=== PATIENT | male | born 1960 | race Caucasian/White ===

== ENCOUNTER → 2017-06-18 15:06 | Outpatient (CLI) | payer OTHER, SELFPAY ==
--- NOTE | 2017-06-18 15:13 | XR_ITS ---
XR chest 2V HISTORY: ITS.REASON: COUGH,SPUTUM,COREY RIB PAIN FROM MOWER INJURY ORDERING PHYSICIAN: Chidi Townsend PATIENT AGE: 57 years COMPARISON: 04/24/2016 FINDINGS: The cardiomediastinal silhouette and pulmonary vascularity are within normal limits. The lungs are clear without infiltrates, suspicious nodules, or pleural effusions. There are old left-sided rib fractures of the fifth, sixth, and seventh ribs. There is mild wedging involving appears to represent L1 chronic in nature No acute bony abnormalities. IMPRESSION: No change with no acute finding
== END ==
PROVIDERS: PCP Internal Medicine; Visit Provider Internal Medicine
DX: R05 Cough (principal); R07.81 Pleurodynia; R09.3 Abnormal sputum
CPT/HCPCS: 71046

== ENCOUNTER 2017-10-29 20:18 | Observation (INO) ==
[2017-10-29 20:35] LABS: Basophils # 0.1 K/mm3 (0-0.2); Eosinophils # 0.1 K/mm3 (0.0-0.4); Eosinophils % 2.2 % (0.1-12.0); Hemoglobin 14.1 g/dL (14.1-18.0); Lymphocytes # 2.6 K/mm3 (0.7-4.5); Lymphocytes % 50.7 K/mm3 (10-50); Mean Corpuscular Hemoglobin 31.3 pg (27.0-31.2); Mean Corpuscular Volume 97.9 fl (80-94); Mean Platelet Volume 6.8 fl (7.4-10.4); Monocytes # 0.4 K/mm3 (0.1-1.0); Monocytes % 8.5 % (1.7-9.3); Neutrophils # 1.8 K/mm3 (1.8-7.8); Neutrophils % 36.6 % (37.0-80.0); Platelet Count 414 K/mm3 (142-424); Red Cell Distribution Width 15.6 % (11.5-17.5)
--- NOTE | 2017-10-29 20:37 | Emergency Department Note ---
ED Disposition Clinical Impression: Tobacco use, Alcohol use Chest pain Qualifiers: Chest pain type: precordial pain Qualified Code(s): R07.2 - Precordial pain Ribs, multiple fractures Qualifiers: Encounter type: initial encounter Fracture type: closed Laterality: bilateral Qualified Code(s): S22.43XA - Multiple fractures of ribs, bilateral, initial encounter for closed fracture Disposition: Admitted as Observation Condition on Discharge: Good Referrals: Chidi Townsend [Primary Care Provider] - - Critical Care Critical Care Time: No Attestation: On , the high probability of a clinically significant, sudden or life threatening deterioration of the following system(s) required my full and direct attention, intervention and personal management. The time I documented below is in addition to time spent performing reported procedures but includes the following listed in this critical care notation. Medical Decision Making - Medical Records Medical records reviewed: Yes: I reviewed the patient's medical records. - Hernandez Inquiry Pt receiving controlled substance: No Vital Signs: 10/29/17 20:19 10/29/17 20:49 10/29/17 21:19 Temperature 98 F 98.6 F Temperature Source Oral Oral Pulse Rate [Right Radial] 90 92 H 69 Respiratory Rate 20 20 Blood Pressure [Right Arm] 147/89 135/82 123/67 Blood Pressure Mean [Right Arm] 108 99 85 Blood Pressure Source [Right Arm] Automatic Cuff Automatic Cuff Blood Pressure Position [Right Arm] Sitting Supine 02 Sat by Pulse Oximetry 97 96 95 Oxygen Delivery Method Room Air Room Air 10/29/17 21:42 10/29/17 22:30 Temperature 98.2 F Temperature Source Oral Pulse Rate [Right Radial] 72 71 Respiratory Rate 18 16 Blood Pressure [Right Arm] 126/76 124/84 Blood Pressure Mean [Right Arm] 92 97 Blood Pressure Source [Right Arm] Automatic Cuff Automatic Cuff Blood Pressure Position [Right Arm] Sitting Sitting 02 Sat by Pulse Oximetry 93 L 98 Oxygen Delivery Method Room Air Room Air - Lab Data Lab results reviewed: Yes: I reviewed the patient's lab results. Lab Results 10/29/17 20:25: WBC 5.0, RBC 4.50 L, Hgb 14.1, Hct 44.0, MCV 97.9 H, MCH 31.3 H, MCHC 32.0, RDW 15.6, Plt Count 414, MPV 6.8 L, Neut % (Auto) 36.6 L, Lymph % (Auto) 50.7 H, [place] % (Auto) 8.5, Eos % (Auto) 2.2, Baso % (Auto) 2.0, Neut # (Auto) 1.8, Lymph # (Auto) 2.6, [place] # (Auto) 0.4, Eos # (Auto) 0.1, Baso # (Auto) 0.1, Total Counted 100, Neutrophils % (Manual) 31 L, Lymphocytes % (Manual) 50, Monocytes % (Manual) 16 H, Eosinophils % (Manual) 3, Platelet Estimate Normal, Hypochromasia 1+ 10/29/17 20:25: Sodium 150 H, Potassium 3.9, Chloride 112 H, Carbon Dioxide 29, Anion Gap 12.9, BUN 5 L, Creatinine 0.79, Estimated Creat Clear 103, Estimated GFR 101, Est GFR ( Amer) 122, Glucose 83, Calcium 8.8, Troponin I < 0.02 10/29/17 20:25: Plasma/Serum Alcohol 215 H 10/29/17 22:18: Troponin I < 0.02 Result diagrams: 10/29/17 20:25 10/29/17 20:25 Orders (Tests/Meds): ED MEDICATIONS Discontinued Medications Generic Name Dose Route Start Last Admin Trade Name Sweta PRN Reason Stop Dose Admin Aspirin 324 mg 10/29/17 20:23 10/29/17 20:26 Aspirin 81mg Chewable Tablet PO 10/29/17 20:24 324 mg ONCE ONE Administration Iopamidol 75 ml 10/29/17 21:31 10/29/17 21:32 [id number]; 75ml Vial IV 10/29/17 21:32 75 ml ONCE ONE Administration Protocol Nitroglycerin 0.4 mg 10/29/17 20:25 10/29/17 20:26 Nitrostat 0.4mg Sl Tablet SL 10/29/17 20:26 0.4 mg ONCE ONE Administration Nitroglycerin 0.5 gm 10/29/17 20:40 10/29/17 20:43 Nitroglycerin 1 Inch Oint Udp TD 10/29/17 20:41 0.5 gm ONCE ONE Administration Sodium Chloride 50 ml 10/29/17 21:31 10/29/17 21:33 Rad-Ns 50ml Vial IV 10/29/17 21:32 50 ml ONCE ONE Administration - Radiology Data #1 Image(s): Chest Image Reviewed: Yes I reviewed the patient's radiology image Preliminary Findings: Abnormal (old rib fx ) - ECG Data Tracing #1 I reviewed this ECG and interpreted as documented below: Normal Sinus Rhythm: Yes Ischemic changes: non-specific ST-T wave changes - Physician Consults Physician Consulted: leann Reason -: Admission Chest Pain HPI - General Chief Complaint: Chest Pain Stated Complaint: Chest Pain Time Seen by Provider: 10/29/17 20:20 Mode of Arrival: Family Vehicle Source of Information: Patient, Spouse, Medical Record Limitations: No Limitations Description of Symptoms (Recalled from ER Triage Doc. by RN): pt states that approx 1 hour ago he had sudden onset of chest pain. pt describes the pain as being in his left chest/axilla area. pt also c/o nausea. - History of Present Illness HPI narrative: acute onset of lt chest pain which started tonight - new pain wi8th nausea complaint: chest pain indicative of cardiac Onset (ago): hour(s) Duration: now resolved Activity at onset: during rest Pain location: left chest Severity: moderate Quality: dull Pain radiation: none Associated symptoms: nausea Risk Factors for CAD: Family Hx of CAD, Smoking Treatments prior to or on arrival for Cardiac Chest Pain: none - JACOB Score Non-Stemi Age of patient: Less than 65 yrs Number of risk factors for CAD: Presence of 3 or more Prior coronary artery stenosis(seen in coronary angiography): Less than 50% ST-Segment deviation on ECG (more than 1 min): Absent Prior aspirin intake: No ASA in the last 7 days Severe anginal chest pain: Two or more episodes in last 24 hours Elevated cardiac markers(CK-MB or troponin): Absent Non-Stemi Risk Score: 2 - Related Data Home Medications Medication Instructions Recorded Confirmed No Known Home Medications 10/29/17 10/29/17 Allergies Allergy/AdvReac Type Severity Reaction Status Date / Time meperidine [From Demerol] Allergy Verified 10/29/17 20:22 [facility] History I have reviewed the patient's past medical history: Yes Medical History: Denies:: Cancer, Diabetes Mellitus Type 1, Diabetes Mellitus Type 2, MRSA Amputation: No Fractures: No - Social History Smoking Status: Current every day smoker Alcohol Intake: never - Psychiatric History Expresses thoughts of harming self/others: None Suicide Plan Description: No Plan ROS Obtained: Yes All systems reviewed & no additional complaints - Constitutional Constitutional: Denies fever(s) - Eyes Eyes: Denies change in vision - ENT Ears, Nose, Mouth, and Throat: Denies sore throat - Cardiovascular Cardiovascular: Reports chest pain, Reports dyspnea - Respiratory Respiratory: No cough, No dyspnea, Yes other (wells score 4.5) - Gastrointestinal Gastrointestingal: Denies: abdominal pain - Genitourinary Male Genitourinary: Denies hematuria - Musculoskeletal Musculoskeletal: Denies joint pain, Denies joint swelling - Integumentary/Breasts Skin/Breast: Denies rash - Neurologic Neurologic: Denies headache(s), Denies seizure-like activity Physical Exam - General General appearance: alert - Head Head exam: normocephalic - Eye Eye exam: Present: PERRL, EOMI - ENT ENT exam: Present: mucous membranes moist - Neck Neck exam: Present: trachea midline - Chest Chest inspection: Present: tenderness - Respiratory Respiratory exam: Absent: respiratory distress - Cardiovascular Cardiovascular exam: Present: regular rate, systolic murmur, +S4 - Abdominal Exam Abdominal exam: Present: soft - Extremities Exam Extremities exam: Absent: pedal edema - Neurological Exam Neurological exam: Present: alert, oriented X3, CN II-XII intact - Psychiatric Psychiatric exam: Present: normal affect - Skin Skin exam: Absent: rash
[2017-10-29 20:52] LABS: Anion Gap 12.9 mEq/L (5-15); Blood Urea Nitrogen 5 mg/dL (7-18); Calcium 8.8 mg/dL (8.5-10.1); Carbon Dioxide 29 mmol/L (21.0-32.0); Chloride 112 mmol/L (98-107); Glucose 83 mg/dL (74-106); Potassium 3.9 mmoL/L (3.5-5.1)
[2017-10-29 20:53] LABS: Sodium 150 mmol/L (136-145)
[2017-10-29 21:02] LABS: Eosinophils % 3 % (0-3); Lymphocytes % 50 % (10-50); Monocytes % 16 % (2-9); Neutrophils % 31 % (42-76); Total Cells Counted 100
[2017-10-29 21:03] LABS: Hypochromasia 1+
[2017-10-30 06:38] LABS: Basophils # 0.1 K/mm3 (0-0.2); Basophils % 1.2 % (0.1-2.0); Eosinophils # 0.1 K/mm3 (0.0-0.4); Eosinophils % 2.1 % (0.1-12.0); Hematocrit 38.6 % (42.0-52.0); Lymphocytes # 1.9 K/mm3 (0.7-4.5); Mean Corpuscular HGB Conc 31.4 g/dL (31.8-35.4); Mean Corpuscular Hemoglobin 31.2 pg (27.0-31.2); Mean Corpuscular Volume 99.6 fl (80-94); Mean Platelet Volume 7.1 fl (7.4-10.4); Monocytes # 0.5 K/mm3 (0.1-1.0); Monocytes % 8.6 % (1.7-9.3); Neutrophils # 2.7 K/mm3 (1.8-7.8); Neutrophils % 51.1 % (37.0-80.0); Platelet Count 362 K/mm3 (142-424); Red Blood Count 3.88 M/mm3 (4.60-6.20); Red Cell Distribution Width 15.6 % (11.5-17.5); White Blood Count 5.3 K/mm3 (4.8-10.8)
[2017-10-30 06:54] LABS: Anion Gap 14.2 mEq/L (5-15); Calcium 8.2 mg/dL (8.5-10.1); Chol/HDL Ratio 1.8 (1-3.5); Potassium 3.2 mmoL/L (3.5-5.1)
[2017-10-30 06:58] LABS: Hemoglobin 12.2 g/dL (14.1-18.0)
--- NOTE | 2017-10-30 07:29 | Pharmacy Consult Notes ---
[facility] Pharmacy VTE Monitoring - Patient Demographics Admission date: 10/29/17 Report Date: 10/30/17 Time: 07:29 Allergies/Adverse Reactions: Patient Allergies meperidine [From Demerol] Allergy (Verified 10/29/17 20:22) Height: 1.7 m Weight: 68.095 kg Patient Problems: Current Active Problems Chest pain (Acute) Ribs, multiple fractures (Acute) Tobacco use (Acute) Alcohol use (Acute) - VTE Risk Labs: VTE Related Lab Results Hgb 12.2 g/dL (14.1-18.0) L D 10/30/17 05:28 Hct 38.6 % (42.0-52.0) L 10/30/17 05:28 Plt Count 362 K/mm3 (142-424) 10/30/17 05:28 BUN 6 mg/dL (7-18) L 10/30/17 05:28 Creatinine 0.70 mg/dL (0.70-1.30) 10/30/17 05:28 Estimated Creat Clear 111 mL/min (0-300) 10/30/17 05:28 Was VTE Risk Assessment Performed: Yes VTE Score: 1 VTE Risk Level: Very Low Risk - Prophylaxis VTE Prophylaxis Ordered?: Yes Types of VTE Prophylaxis: TEDS Knee High Location of Applied Device: Bilateral Lower Extremeties - VTE Diagnosis Confirmed Treatment or plan recommended: Continue Current Treatment
--- NOTE | 2017-10-30 09:55 | H&P/Discharge Summary ---
General - General Admission date:: 10/29/17 Discharge date: 10/30/17 *Admission Date: 10/29/17 *Chief complaint: chest pain *History of present illness: Mr. Low is a 57-year-old male with history locks, alcohol use disorder, tobacco use disorder who presents with left-sided chest pain to the ER yesterday. Patient states he was at home yesterday evening sitting at dinner when he developed left-sided chest pain just lateral to the left nipple at mid axillary line. He had not had pain like this before. And it was not getting better so his brought him to the emergency room. He denies any trauma or falls. ER got an EKG that was normal, serial troponins that were normal with no delta. Concern was patient may have cardiac etiology for chest pain as he has significant risk factors with family history of coronary artery disease, tobacco use, poor outpatient follow-up with physician. Chest x-ray and chest CT performed on patient showed bilateral healing rib fractures, one in the location of his reported chest pain. Additionally he had been treated with a dose of nitroglycerin which helped somewhat with the pain but also gave him a significant headache. Patient was admitted overnight for monitoring and possible cardiology consult. Further history this morning elicits that the patient's pain is reproducible on exam, focal over the location of left-sided rib fracture, rib #6. He denies any further episodes overnight of chest pain that could be cardiac in etiology. Denies pressure, shortness of breath. Is a smoker and coughing has exacerbated the pain. Has been coughing a little bit more lately. Denies any fevers, nausea or vomiting, diarrhea, syncope, referred pain to neck or arm. Found to have blood alcohol level of 215 on admission. States that he drinks 1/2-1 pint a day of liquor. Has been struggling with alcohol for some time. Has never had withdrawal symptoms, seizures, tremors. Has 3 sponsors at . [facility] History I have reviewed the patient's past medical history: Yes Medical History: Denies:: Cancer, Diabetes Mellitus Type 1, Diabetes Mellitus Type 2, MRSA Other Surgeries: Yes: Hernia Repair Amputation: No Fractures: No - *Social History Smoking Status: Current every day smoker Tobacco Type: cigarettes # Packs/Day (cigarettes): 1 Alcohol Intake: never Alcohol Intake Frequency:: 3 or more drinks per day Occupational Status: employed Household Members: spouse - Psychiatric History Expresses thoughts of harming self/others: None Suicide Plan Description: No Plan *Family Hx:: No significant family history Review of Systems - Review of Systems Review of systems:: pertinent systems reviewed and negative unless documented below - *Neurologic Denies headache(s), Denies seizure-like activity Exam Vital signs and Labs for Last 24 Hours: Temp Pulse Resp BP Pulse Ox 97.9 F 77 18 127/73 97 10/30/17 07:52 10/30/17 07:52 10/30/17 07:52 10/30/17 07:52 10/30/17 07:52 Laboratory Results - last 24 hr 10/29/17 20:25: WBC 5.0, RBC 4.50 L, Hgb 14.1, Hct 44.0, MCV 97.9 H, MCH 31.3 H, MCHC 32.0, RDW 15.6, Plt Count 414, MPV 6.8 L, Neut % (Auto) 36.6 L, Lymph % (Auto) 50.7 H, [place] % (Auto) 8.5, Eos % (Auto) 2.2, Baso % (Auto) 2.0, Neut # (Auto) 1.8, Lymph # (Auto) 2.6, [place] # (Auto) 0.4, Eos # (Auto) 0.1, Baso # (Auto) 0.1, Total Counted 100, Neutrophils % (Manual) 31 L, Lymphocytes % (Manual) 50, Monocytes % (Manual) 16 H, Eosinophils % (Manual) 3, Platelet Estimate Normal, Hypochromasia 1+ 10/29/17 20:25: Sodium 150 H, Potassium 3.9, Chloride 112 H, Carbon Dioxide 29, Anion Gap 12.9, BUN 5 L, Creatinine 0.79, Estimated Creat Clear 103, Estimated GFR 101, Est GFR ( Amer) 122, Glucose 83, Calcium 8.8, Troponin I < 0.02 10/29/17 20:25: Plasma/Serum Alcohol 215 H 10/29/17 22:18: Troponin I < 0.02 10/30/17 02:20: Troponin I < 0.02 10/30/17 05:28: Troponin I < 0.02 10/30/17 05:28: WBC 5.3, RBC 3.88 L, Hgb 12.2 L D, Hct 38.6 L, MCV 99.6 H, MCH 31.2, MCHC 31.4 L, RDW 15.6, Plt Count 362, MPV 7.1 L, Neut % (Auto) 51.1, Lymph % (Auto) 37.0, [place] % (Auto) 8.6, Eos % (Auto) 2.1, Baso % (Auto) 1.2, Neut # (Auto) 2.7, Lymph # (Auto) 1.9, [place] # (Auto) 0.5, Eos # (Auto) 0.1, Baso # (Auto) 0.1 10/30/17 05:28: Sodium 146 H, Potassium 3.2 L, Chloride 109 H, Carbon Dioxide 26, Anion Gap 14.2, BUN 6 L, Creatinine 0.70, Estimated Creat Clear 111, Estimated GFR 116, Est GFR ( Amer) 141, Glucose 68 L, Calcium 8.2 L, Magnesium 1.6, Triglycerides 54, Cholesterol 170, LDL Cholesterol 64, VLDL Cholesterol 11, HDL Cholesterol 95 H, Cholesterol/HDL Ratio 1.8 I & O for Last 24 hours: Intake & Output 10/27/17 10/28/17 10/29/17 10/30/17 23:59 23:59 23:59 23:59 Intake Total 813 / 813 Balance 813 / 813 Weight 67.188 kg 71.214 kg - *Routine HEENT Exam Head: Present: normocephalic, atraumatic Eye: Present: EOMI, PERRL. Absent: conjunctival icterus ENT: Present: mucous membranes moist - *Routine Neck Exam Present: supple, full ROM. Absent: JVD - Routine Chest/Breast/Axilla Exam Chest wall: Present: tenderness (Over midaxillary point of left sixth rib.) - *Routine Respiratory Exam Present: CTA bilaterally. Absent: accessory muscle use, prolonged expiratory phase, rales, wheezes - *Routine Cardiovascular Exam Present: RRR, Normal S1, Normal S2. Absent: murmur - *Routine Abdominal Exam Present: soft, normoactive bowel sounds. Absent: tenderness - *Routine Rectal Exam Patient deferred: visual exam - *Routine Exam Patient deferred: penile exam - *Routine Extremities Exam Absent: cyanosis, clubbing, edema - *Routine Skin Exam Present: intact. Absent: cyanosis, erythema - *Routine Neurological Exam Present: alert, oriented X3, CN II-XII intact. Absent: altered mental status, tremors, asterixis - Routine Psychiatric Exam Present: normal affect, normal thought process, cooperative Hospital Course Hospital Course: Patient admitted overnight, found to have negative cardiac with no EKG changes and negative troponins. Exam consistent with chest wall pain. No further events. Pain well managed. During admission orders placed for alcohol withdrawal monitoring. No episodes of withdrawal, tremors, seizures. Patient states he has follow-up with AA and support for his alcohol abuse. Anemia. Given vitamin replacement per alcohol withdrawal protocol. Remained hemodynamically stable. Medically appropriate for discharge home. Results Labs on day of discharge: Labs from last 24 hours 10/30/17 10/30/17 10/30/17 05:28 05:28 05:28 WBC 5.3 RBC 3.88 L Hgb 12.2 L D Hct 38.6 L MCV 99.6 H MCH 31.2 MCHC 31.4 L RDW 15.6 Plt Count 362 MPV 7.1 L Neut % (Auto) 51.1 Lymph % (Auto) 37.0 [place] % (Auto) 8.6 Eos % (Auto) 2.1 Baso % (Auto) 1.2 Neut # (Auto) 2.7 Lymph # (Auto) 1.9 [place] # (Auto) 0.5 Eos # (Auto) 0.1 Baso # (Auto) 0.1 Total Counted Neutrophils % (Manual) Lymphocytes % (Manual) Monocytes % (Manual) Eosinophils % (Manual) Platelet Estimate Hypochromasia Sodium 146 H Potassium 3.2 L Chloride 109 H Carbon Dioxide 26 Anion Gap 14.2 BUN 6 L Creatinine 0.70 Estimated Creat Clear 111 Estimated GFR 116 Est GFR ( Amer) 141 Glucose 68 L Calcium 8.2 L Magnesium 1.6 Troponin I < 0.02 Triglycerides 54 Cholesterol 170 LDL Cholesterol 64 VLDL Cholesterol 11 HDL Cholesterol 95 H Cholesterol/HDL Ratio 1.8 Plasma/Serum Alcohol 10/30/17 10/29/17 10/29/17 02:20 22:18 20:25 WBC RBC Hgb Hct MCV MCH MCHC RDW Plt Count MPV Neut % (Auto) Lymph % (Auto) [place] % (Auto) Eos % (Auto) Baso % (Auto) Neut # (Auto) Lymph # (Auto) [place] # (Auto) Eos # (Auto) Baso # (Auto) Total Counted Neutrophils % (Manual) Lymphocytes % (Manual) Monocytes % (Manual) Eosinophils % (Manual) Platelet Estimate Hypochromasia Sodium Potassium Chloride Carbon Dioxide Anion Gap BUN Creatinine Estimated Creat Clear Estimated GFR Est GFR ( Amer) Glucose Calcium Magnesium Troponin I < 0.02 < 0.02 Triglycerides Cholesterol LDL Cholesterol VLDL Cholesterol HDL Cholesterol Cholesterol/HDL Ratio Plasma/Serum Alcohol 215 H 10/29/17 10/29/17 20:25 20:25 WBC 5.0 RBC 4.50 L Hgb 14.1 Hct 44.0 MCV 97.9 H MCH 31.3 H MCHC 32.0 RDW 15.6 Plt Count 414 MPV 6.8 L Neut % (Auto) 36.6 L Lymph % (Auto) 50.7 H [place] % (Auto) 8.5 Eos % (Auto) 2.2 Baso % (Auto) 2.0 Neut # (Auto) 1.8 Lymph # (Auto) 2.6 [place] # (Auto) 0.4 Eos # (Auto) 0.1 Baso # (Auto) 0.1 Total Counted 100 Neutrophils % (Manual) 31 L Lymphocytes % (Manual) 50 Monocytes % (Manual) 16 H Eosinophils % (Manual) 3 Platelet Estimate Normal Hypochromasia 1+ Sodium 150 H Potassium 3.9 Chloride 112 H Carbon Dioxide 29 Anion Gap 12.9 BUN 5 L Creatinine 0.79 Estimated Creat Clear 103 Estimated GFR 101 Est GFR ( Amer) 122 Glucose 83 Calcium 8.8 Magnesium Troponin I < 0.02 Triglycerides Cholesterol LDL Cholesterol VLDL Cholesterol HDL Cholesterol Cholesterol/HDL Ratio Plasma/Serum Alcohol DS: Diagnosis - Discharge Diagnosis (1) Anemia Status: Chronic Problem details: Macrocytic anemia likely due to alcohol use and vitamin deficiency. Recommended daily multivitamin and alcohol cessation (2) Alcohol use Status: Chronic Problem details: Withdrawal. Received 1 dose of Ativan in the ER. No further signs of with. Patient states he has resources in the outpatient setting and did not need additional resources. (3) Chest pain Status: Acute Problem details: Noncardiac in etiology, suspect due to rib fracture. Discussed pain confirmed consisting ibuprofen and Tylenol. Patient also has bumps from previous rib fractures, states he will start to use this to assist with discomfort. Because of risk factors will have patient follow-up with cardiology in the outpatient setting, no assessment performed or consult placed during inpatient stay. (4) Ribs, multiple fractures Status: Acute Problem details: Pain control. Suspect likely G of patient's chest pain. (5) Tobacco use Status: Chronic Problem details: Counseled on cessation. Suspect coughing may be related to patient's chest pain and fractures. Discharge Medications - Medications for Discharge Home Medication List at Discharge: New Acetaminophen [Acetaminophen 325mg tab] 650 mg PO Q4HP PRN tablet PRN Reason: As Needed For Fever Or Pain Multivitamin [Multi-Vitamin Plain] 1 each PO 1700 tablet Continue Famotidine [Pepcid] 20 mg PO DAILY Naproxen 500 mg PO BIDP PRN PRN Reason: PAIN Disposition Disposition: Home, Self-Care
== END 2017-10-30 11:05 | disposition home or self-care (01) ==
LOC: ER 20:18 → 2ND 20:18
PROVIDERS: ADMIT Internal Medicine Adolescent Medicine; ATTEND Internal Medicine Adolescent Medicine
CPT/HCPCS: 36415; 71010; 71045; 71275; 80048; 80061; 83735; 84484; 85007; 85025; 93005; 93306; 96374; 99284; G0378; Q9967

== ENCOUNTER → 2017-11-21 16:11 | Outpatient (CLI) | payer BC, SELFPAY ==
[2017-11-21 16:44] LABS: Basophils # 0.1 K/mm3 (0-0.2); Basophils % 1.3 % (0.1-2.0); Eosinophils # 0.1 K/mm3 (0.0-0.4); Eosinophils % 0.9 % (0.1-12.0); Hematocrit 41.5 % (42.0-52.0); Hemoglobin 13.3 g/dL (14.1-18.0); Lymphocytes # 2.1 K/mm3 (0.7-4.5); Lymphocytes % 30.1 K/mm3 (10-50); Monocytes # 0.6 K/mm3 (0.1-1.0); Neutrophils # 4.2 K/mm3 (1.8-7.8); Neutrophils % 59.8 % (37.0-80.0); Platelet Count 295 K/mm3 (142-424); Red Blood Count 4.15 M/mm3 (4.60-6.20); Red Cell Distribution Width 15.4 % (11.5-17.5); White Blood Count 7.1 K/mm3 (4.8-10.8)
[2017-11-21 20:00] LABS: Alanine Aminotransferase 32 U/L (12-78); Albumin Level 3.8 gm/dL (3.4-5.0); Albumin/Globulin Ratio 1.5 (1.1-1.8); Alkaline Phosphatase 81 U/L (46-116); Anion Gap 9.5 mEq/L (5-15); Aspartate Amino Transferase 35 U/L (15-37); Bilirubin,Total 0.5 mg/dL (0.2-1.0); Blood Urea Nitrogen 6 mg/dL (7-18); Carbon Dioxide 27 mmol/L (21.0-32.0); Chloride 101 mmol/L (98-107); Creatinine,Serum 0.68 mg/dL (0.70-1.30); Estimated Glomerular Filt Rate 120 ml/min (>60); GFR (African American) 145 ML/MIN (>60); Globulin 2.6 gm/dl (1.3-3.2); Glucose 97 mg/dL (74-106); Potassium 3.5 mmoL/L (3.5-5.1); Sodium 134 mmol/L (136-145); Total Protein,Serum 6.4 gm/dL (6.4-8.2)
== END ==
PROVIDERS: PCP Internal Medicine; Visit Provider Otolaryngology
DX: Z01.812 Encounter for preprocedural laboratory examination (principal)
CPT/HCPCS: 36415; 80053; 85025